=== PATIENT | female | born 1955 | race Hispanic/Latino ===

== ENCOUNTER 2020-12-07 23:42 | Emergency (ER) | payer OTHER, MEDICARE | END 2020-12-08 00:30 | disposition home or self-care (01) | LOC: CSHERS 23:42 | DX: S30.1XXA Contusion of abdominal wall, initial encounter (principal); E11.9 Type 2 diabetes mellitus without complications; I25.10 Atherosclerotic heart disease of native coronary artery without angina pectoris; E78.5 Hyperlipidemia, unspecified; I10 Essential (primary) hypertension; Z79.82 Long term (current) use of aspirin; Z79.84 Long term (current) use of oral hypoglycemic drugs; Z79.899 Other long term (current) drug therapy | CPT/HCPCS: 99283 ==

== ENCOUNTER 2022-11-17 11:12 | Inpatient (IN) | payer OTHER, MEDICARE ==
[2022-11-17] MEDS ORDERED: Pantoprazole 40 MG VIAL ONE (12:56)
[2022-11-17] MEDS ORDERED: Ondansetron PF 4 MG/2 ML Vial ONE (12:56)
[2022-11-17 13:04] LABS: #Basophils 0.1 10x3/uL (0.0-0.2); #Eosinphils 0.1 10x3/uL (0.0-0.5); #Monocytes 0.7 10x3/uL (0.0-1.1); #Neutrophils 11.1 10x3/uL (1.5-8.4); %Basophils 0.6 % (0.0-2.0); %Eosinophils 0.7 % (0.0-6.0); %Lymphocytes 12.6 % (18.0-47.0); %Monocytes 5.4 % (0.0-10.0); %Neutrophils 80.3 % (40.0-75.0); Hemoglobin 13.1 g/dL (12.0-15.5); Mean Corpuscular HGB CONC 32.8 g/dL (32.0-36.0); Mean Corpuscular Hemoglobin 24.8 pg (27.0-33.0); Mean Corpuscular Volume 75.6 fl (81.6-98.3); Mean Platelet Volume 11.5 fl (7.4-10.4); Platelet Count 348 10x3/uL (150-450); RBC Distribution Width 19.3 % (11.5-14.5); Red Blood Cell (RBC) Count 5.29 10x6/uL (3.90-5.03); White Blood Cell (WBC) Count 13.8 10x3/uL (3.5-10.5)
[2022-11-17 13:53] LABS: PTT 22.5 sec (22.0-33.0); Prothrombin Time 11.1 sec (9.5-12.1)
[2022-11-17 13:57] LABS: ALT (SGPT) 44 U/L (8-55); AST (SGOT) 21 U/L (5-34); Alkaline Phosphatase 77 U/L (40-110); Anion Gap 28 mmol/L (10-20); BUN (Urea Nitrogen) 20 mg/dL (9.8-20.1); Bilirubin, Total 0.9 mg/dL (0.2-1.2); Calc. Creatinine Clearance 0 mL/min (70-130); Calcium 9.7 mg/dL (7.8-10.44); Carbon Dioxide 21 mmol/L (23-31); Chloride 95 mmol/L (98-107); Estimated GFR 45; Globulin 2.9 g/dL (2.4-3.5); Glucose 365 mg/dL (80-115); Lipase 20 U/L (8-78); Phosphorus 3.3 mg/dL (2.3-4.7); Potassium 3.4 mmol/L (3.5-5.1); Protein, Total 6.9 g/dL (5.8-8.1); Sodium 141 mmol/L (136-145)
[2022-11-17 14:01] LABS: Magnesium 1.6 mg/dL (1.6-2.6)
[2022-11-17 16:31] LABS: Actual Bicarbonate (HCO3v) 23 mEq/L (22-28); Base Excess 0.2 mEq/L (-2 - +2); Chloride (VBG) 101 mmol/L (98-106); Hemoglobin (Hb) 12.7 g/dL (11.7-16.1); Potassium (VBG) 3.18 mmol/L (3.70-5.30); Puncture Site Other Site; RapidComm Collect By CBN; Sodium 138.6 mmol/L (133-146)
[2022-11-17] MEDS ORDERED: Dextrose 50% Abboject 50 ML SYRINGE SLOW IVP PRN (16:49)
[2022-11-17] MEDS ORDERED: HumaLOG 300 UNITS/3 ML VIAL SC PRN ×2 (16:49)
[2022-11-17] MEDS ORDERED: Acetaminophen 325 MG TAB PO PRN (16:49)
[2022-11-17] MEDS ORDERED: Dextrose 5% in Water 1,000 ML IV PRN (16:49)
[2022-11-17 18:02] LABS: Bilirubin Neg (Negative); Blood, Urine Negative (Negative); Clarity Clear (Clear); Glucose, Urine (Dipstick) >=1000 mg/dL (Negative); Ketone, Urine 150 mg/dL (Negative); Leukocyte Negative (Negative); Nitrite Negative (Negative); Protein, Urine (Dipstick) 30 mg/dl (Neg-Trace); Urobilinogen Normal mg/dL (Less than 2)
[2022-11-17 18:14] LABS: Bacteria/HPF 1+ HPF (None Seen); Mucous/LPF Rare LPF (<2+); Squamous Epithelial None Seen HPF (0-3); WBC/HPF 0-3 HPF (0-3)
[2022-11-17 18:15] LABS: RBC/HPF 0-3 HPF (0-3); Renal Epithelial 0-3 HPF (None Seen)
[2022-11-17] MEDS: Potassium Chloride 20 MEQ in Lactated Ringer's 1,000 ML IV SCH (18:49)
[2022-11-17 20:11] VITALS: BMI 28.8
[2022-11-17] MEDS: Pantoprazole 40 MG VIAL IVP SCH (21:16)
[2022-11-17 23:35] LABS: Hemoglobin A1c 6.7 % (4.0-6.0)
[2022-11-18 06:02] LABS: Anion Gap 17 mmol/L (10-20); BUN (Urea Nitrogen) 21 mg/dL (9.8-20.1); Calc. Creatinine Clearance 58 mL/min (70-130); Calcium 8.7 mg/dL (7.8-10.44); Carbon Dioxide 26 mmol/L (23-31); Chloride 100 mmol/L (98-107); Estimated GFR 59; Glucose 100 mg/dL (80-115); Potassium 3.6 mmol/L (3.5-5.1); Sodium 139 mmol/L (136-145)
[2022-11-18 06:19] LABS: #Eosinphils 0.1 10x3/uL (0.0-0.5); #Neutrophils 4.4 10x3/uL (1.5-8.4); %Basophils 0.4 % (0.0-2.0); %Eosinophils 0.7 % (0.0-6.0); %Lymphocytes 32.1 % (18.0-47.0); %Monocytes 11.8 % (0.0-10.0); %Neutrophils 54.6 % (40.0-75.0); Hemoglobin 10.4 g/dL (12.0-15.5); Mean Corpuscular HGB CONC 32.7 g/dL (32.0-36.0); Mean Corpuscular Hemoglobin 24.9 pg (27.0-33.0); Mean Corpuscular Volume 76.1 fl (81.6-98.3); Mean Platelet Volume 11.3 fl (7.4-10.4); Platelet Count 251 10x3/uL (150-450); RBC Distribution Width 17.1 % (11.5-14.5); Red Blood Cell (RBC) Count 4.18 10x6/uL (3.90-5.03)
[2022-11-18 07:36] LABS: SARS-CoV-2 NAA Rapid Test Not Detected (NotDetected)
[2022-11-18] MEDS: Pantoprazole 40 MG VIAL IVP SCH ×2 (09:24→22:08)
[2022-11-18] MEDS: Potassium Chloride 20 MEQ in Lactated Ringer's 1,000 ML IV SCH ×2 (09:24→22:09)
[2022-11-18] MEDS: Polyethylene Glycol 3350 17 GM Packet PO SCH (09:24)
[2022-11-19] MEDS: Pantoprazole 40 MG VIAL IVP SCH ×2 (08:34→21:27)
[2022-11-19] MEDS: Ondansetron PF 4 MG/2 ML Vial IVP PRN (08:37)
[2022-11-19] MEDS: Polyethylene Glycol 3350 17 GM Packet PO SCH (08:38)
[2022-11-19 08:50] LABS: #Basophils 0.1 10x3/uL (0.0-0.2); #Eosinphils 0.1 10x3/uL (0.0-0.5); #Monocytes 0.5 10x3/uL (0.0-1.1); #Neutrophils 1.9 10x3/uL (1.5-8.4); %Basophils 1.3 % (0.0-2.0); %Eosinophils 1.8 % (0.0-6.0); %Lymphocytes 38.5 % (18.0-47.0); %Monocytes 11.3 % (0.0-10.0); %Neutrophils 46.6 % (40.0-75.0); Hemoglobin 10.6 g/dL (12.0-15.5); Mean Corpuscular HGB CONC 32.1 g/dL (32.0-36.0); Mean Corpuscular Hemoglobin 25.1 pg (27.0-33.0); Mean Platelet Volume 10.8 fl (7.4-10.4); Platelet Count 242 10x3/uL (150-450); Red Blood Cell (RBC) Count 4.23 10x6/uL (3.90-5.03)
[2022-11-19 09:04] LABS: Anion Gap 15 mmol/L (10-20); BUN (Urea Nitrogen) 11 mg/dL (9.8-20.1); Calc. Creatinine Clearance 83 mL/min (70-130); Carbon Dioxide 21 mmol/L (23-31); Chloride 105 mmol/L (98-107); Potassium 3.7 mmol/L (3.5-5.1); Sodium 137 mmol/L (136-145)
[2022-11-19 09:05] LABS: Calcium 8.6 mg/dL (7.8-10.44); Estimated GFR 91; Glucose 89 mg/dL (80-115)
[2022-11-19 09:22] LABS: Magnesium 1.8 mg/dL (1.6-2.6); Phosphorus 2.2 mg/dL (2.3-4.7)
[2022-11-19 13:29] LABS: Bilirubin Neg (Negative); Blood, Urine Negative (Negative); Clarity Clear (Clear); Glucose, Urine (Dipstick) Normal (Negative); Ketone, Urine 50 mg/dL (Negative); Leukocyte Negative (Negative); Nitrite Negative (Negative); Protein, Urine (Dipstick) Negative (Neg-Trace)
[2022-11-19 13:45] LABS: Bacteria/HPF None Seen HPF (None Seen); CAUTI Indications for Culture Dysuria,urgency,freq; RBC/HPF 0-3 HPF (0-3); Squamous Epithelial 0-3 HPF (0-3)
[2022-11-19 13:47] LABS: Urine Culture Reflex No No
[2022-11-19] MEDS: cefTRIAXone\\ROCEPHIN 1 GM in Sodium Chloride 0.9% 100 ML IVPB SCH (14:19)
[2022-11-19] MEDS ORDERED: Electrolyte Replacement Protocol 1 EACH FS PRN (16:53)
[2022-11-19] MEDS: Erythromycin 250 MG in Sodium Chloride 0.9% 250 ML 250 ML IVPB SCH (18:31)
[2022-11-19] MEDS ORDERED: Magnesium 2 GM/50 ML(in water) 2 GM in Premix Bag 1 BAG IVPB SCH (20:00)
[2022-11-19] MEDS: Potassium Chloride 20 MEQ in Lactated Ringer's 1,000 ML IV SCH ×2 (21:22→23:04)
[2022-11-20] MEDS: Erythromycin 250 MG in Sodium Chloride 0.9% 250 ML 250 ML IVPB SCH ×5 (00:32→23:49)
[2022-11-20] MEDS: Potassium Chloride 20 MEQ in Lactated Ringer's 1,000 ML IV SCH ×2 (00:40→17:01)
[2022-11-20] MEDS: Pantoprazole 80 MG, Admixture Fee 1 EACH in Sodium Chloride 0.9% 100 ML IVPB SCH ×2 (03:13→17:39)
[2022-11-20 04:54] LABS: #Eosinphils 0.1 10x3/uL (0.0-0.5); #Monocytes 0.5 10x3/uL (0.0-1.1); #Neutrophils 1.7 10x3/uL (1.5-8.4); %Basophils 0.7 % (0.0-2.0); %Eosinophils 2.2 % (0.0-6.0); %Lymphocytes 43.4 % (18.0-47.0); %Monocytes 12.3 % (0.0-10.0); %Neutrophils 41.2 % (40.0-75.0); Hemoglobin 10.1 g/dL (12.0-15.5); Mean Corpuscular HGB CONC 32.1 g/dL (32.0-36.0); Mean Corpuscular Hemoglobin 24.9 pg (27.0-33.0); Mean Corpuscular Volume 77.8 fl (81.6-98.3); Mean Platelet Volume 10.9 fl (7.4-10.4); Platelet Count 232 10x3/uL (150-450); RBC Distribution Width 16.6 % (11.5-14.5); Red Blood Cell (RBC) Count 4.05 10x6/uL (3.90-5.03); White Blood Cell (WBC) Count 4.1 10x3/uL (3.5-10.5)
[2022-11-20 04:56] LABS: Anion Gap 13 mmol/L (10-20); BUN (Urea Nitrogen) 7 mg/dL (9.8-20.1); Carbon Dioxide 20 mmol/L (23-31); Chloride 109 mmol/L (98-107); Potassium 3.6 mmol/L (3.5-5.1); Sodium 138 mmol/L (136-145)
[2022-11-20 04:57] LABS: Calc. Creatinine Clearance 95 mL/min (70-130); Calcium 8.1 mg/dL (7.8-10.44); Estimated GFR 97; Glucose 80 mg/dL (80-115); Magnesium 2.2 mg/dL (1.6-2.6)
[2022-11-20] MEDS: Ondansetron PF 4 MG/2 ML Vial IVP PRN ×2 (07:49→15:31)
[2022-11-20] MEDS: Polyethylene Glycol 3350 17 GM Packet PO SCH (13:18)
[2022-11-20] MEDS: cefTRIAXone\\ROCEPHIN 1 GM in Sodium Chloride 0.9% 100 ML IVPB SCH ×2 (17:38→19:52)
[2022-11-21 04:20] LABS: #Eosinphils 0.1 10x3/uL (0.0-0.5); #Monocytes 0.4 10x3/uL (0.0-1.1); #Neutrophils 1.5 10x3/uL (1.5-8.4); %Basophils 0.8 % (0.0-2.0); %Eosinophils 2.9 % (0.0-6.0); %Lymphocytes 46.5 % (18.0-47.0); %Monocytes 10.4 % (0.0-10.0); %Neutrophils 39.1 % (40.0-75.0); Hemoglobin 10.1 g/dL (12.0-15.5); Mean Corpuscular HGB CONC 32.6 g/dL (32.0-36.0); Mean Corpuscular Hemoglobin 25.1 pg (27.0-33.0); Mean Corpuscular Volume 76.9 fl (81.6-98.3); Platelet Count 229 10x3/uL (150-450); RBC Distribution Width 16.7 % (11.5-14.5); Red Blood Cell (RBC) Count 4.03 10x6/uL (3.90-5.03); White Blood Cell (WBC) Count 3.9 10x3/uL (3.5-10.5)
[2022-11-21 04:28] LABS: Anion Gap 11 mmol/L (10-20); BUN (Urea Nitrogen) 4 mg/dL (9.8-20.1); Calc. Creatinine Clearance 98 mL/min (70-130); Calcium 8.2 mg/dL (7.8-10.44); Carbon Dioxide 20 mmol/L (23-31); Chloride 112 mmol/L (98-107); Estimated GFR 98; Glucose 90 mg/dL (80-115); Magnesium 1.8 mg/dL (1.6-2.6); Potassium 3.7 mmol/L (3.5-5.1); Sodium 139 mmol/L (136-145)
[2022-11-21] MEDS: Pantoprazole 80 MG, Admixture Fee 1 EACH in Sodium Chloride 0.9% 100 ML IVPB SCH (04:55)
[2022-11-21] MEDS: Erythromycin 250 MG in Sodium Chloride 0.9% 250 ML 250 ML IVPB SCH ×2 (05:30→12:55)
[2022-11-21] MEDS: Potassium Chloride 20 MEQ in Lactated Ringer's 1,000 ML IV SCH (06:08)
[2022-11-21] MEDS ORDERED: Magnesium 2 GM/50 ML(in water) 2 GM in Premix Bag 1 BAG IVPB SCH (08:00)
[2022-11-21] MEDS: PHOS-NAK 1 PKT PACK PO SCH ×2 (10:01→12:55)
[2022-11-21] MEDS: Polyethylene Glycol 3350 17 GM Packet PO SCH (10:01)
[2022-11-21 13:16] VITALS: BP 155/70; TEMP 98.5
[2022-11-21] MEDS: cefTRIAXone\\ROCEPHIN 1 GM in Sodium Chloride 0.9% 100 ML IVPB SCH (14:52)
== END 2022-11-21 17:01 | disposition home or self-care (01) | DRG 74 ==
LOC: CSHERS 11:12 → INTOOBSV 18:27 → CSHERHOLD 18:27 → CSHTELE 20:08 → OBSVTOIN 11-19 11:09
PROVIDERS: ADMIT Internal Medicine; ATTEND Internal Medicine
DX: E11.43 Type 2 diabetes mellitus with diabetic autonomic (poly)neuropathy (principal); I12.9 Hypertensive chronic kidney disease with stage 1 through stage 4 chronic kidney disease, or unspecified chronic kidney disease; E11.22 Type 2 diabetes mellitus with diabetic chronic kidney disease; E78.5 Hyperlipidemia, unspecified; I25.10 Atherosclerotic heart disease of native coronary artery without angina pectoris; N18.9 Chronic kidney disease, unspecified; E87.6 Hypokalemia; F41.9 Anxiety disorder, unspecified; F32.A Depression, unspecified; Z20.822 Contact with and (suspected) exposure to COVID-19; K31.84 Gastroparesis; E86.0 Dehydration; Z98.890 Other specified postprocedural states; Z88.5 Allergy status to narcotic agent; Z88.8 Allergy status to other drugs, medicaments and biological substances; Z79.899 Other long term (current) drug therapy; Z79.84 Long term (current) use of oral hypoglycemic drugs
CPT/HCPCS: 36415; 36416; 76705; 78227; 80048; 80053; 81001; 81003; 81015; 82010; 82550; 82805; 83036; 83605; 83690; 83735; 84100; 84484; 85025; 85610; 85730; 86850; 86900; 86901; 93005; 96361; 96374; 96375; A9537; C9113; J0696; J1364; J1815; J2405; J3475; J3480; J3490; J7050; J7120; U0002

== ENCOUNTER 2023-01-06 07:58 | Outpatient (CLI) | payer OTHER, MEDICARE ==
[2023-01-06] MEDS ORDERED: Magnevist 469MG/ML 20 ML VIAL ONE (09:30)
== END 2023-01-06 07:59 | disposition home or self-care (01) ==
LOC: CSHMRI 07:58
PROVIDERS: ATTEND Internal Medicine
DX: K31.84 Gastroparesis (principal); K21.00 Gastro-esophageal reflux disease with esophagitis, without bleeding; D64.9 Anemia, unspecified; K86.9 Disease of pancreas, unspecified
CPT/HCPCS: 74183; A9579

== ENCOUNTER 2023-03-04 10:16 | Outpatient (CLI) | payer OTHER, MEDICARE | END 2023-03-04 10:17 | disposition home or self-care (01) | LOC: CSHMAMMO 10:16 | PROVIDERS: ATTEND Internal Medicine Rheumatology | DX: M81.0 Age-related osteoporosis without current pathological fracture (principal) | CPT/HCPCS: 77080 ==

== ENCOUNTER 2023-04-15 07:27 | Outpatient (CLI) | payer MEDICARE, OTHER ==
[2023-04-15] MEDS ORDERED: Iopamidol 300 61% 100 ML VIAL FS ONE (15:19)
== END 2023-04-15 07:28 | disposition home or self-care (01) ==
LOC: CSHCT 07:27
PROVIDERS: ATTEND Surgery Surgical Oncology
DX: D3A.8 Other benign neuroendocrine tumors (principal); C26.9 Malignant neoplasm of ill-defined sites within the digestive system
CPT/HCPCS: 71260; Q9967

== ENCOUNTER 2023-05-06 12:07 | Emergency (ER) | payer OTHER, MEDICARE ==
[~2023-05-06 12:07] MED LIST: Iopamidol 300 61% 100 ML VIAL FS ONE
[2023-05-06] MEDS ORDERED: Ondansetron PF 4 MG/2 ML Vial ONE (12:36)
[2023-05-06] MEDS ORDERED: Morphine 4 MG/ML VIAL ONE ×2 (12:36→13:47)
[2023-05-06 12:57] LABS: #Basophils 0.1 10x3/uL (0.0-0.2); #Eosinphils 0.1 10x3/uL (0.0-0.5); #Monocytes 0.9 10x3/uL (0.0-1.1); %Basophils 0.9 % (0.0-2.0); %Lymphocytes 12.9 % (18.0-47.0); %Monocytes 6.4 % (0.0-10.0); %Neutrophils 76.2 % (40.0-75.0); Hematocrit 37.2 % (34.9-44.5); Hemoglobin 11.4 g/dL (12.0-15.5); Mean Corpuscular HGB CONC 30.6 g/dL (32.0-36.0); Mean Corpuscular Hemoglobin 23.8 pg (27.0-33.0); Mean Corpuscular Volume 77.7 fl (81.6-98.3); Mean Platelet Volume 10.5 fl (7.4-10.4); Platelet Count 723 10x3/uL (150-450); RBC Distribution Width 16.3 % (11.5-14.5); Red Blood Cell (RBC) Count 4.79 10x6/uL (3.90-5.03); White Blood Cell (WBC) Count 14.4 10x3/uL (3.5-10.5)
[2023-05-06 12:59] LABS: ALT (SGPT) 20 U/L (8-55); AST (SGOT) 18 U/L (5-34); Albumin 3.5 g/dL (3.4-4.8); Alkaline Phosphatase 131 U/L (40-110); Anion Gap 31 mmol/L (10-20); BUN (Urea Nitrogen) 19 mg/dL (9.8-20.1); Bilirubin, Total 0.4 mg/dL (0.2-1.2); Calc. Creatinine Clearance 0 mL/min (70-130); Calcium 8.7 mg/dL (7.8-10.44); Chloride 101 mmol/L (98-107); Estimated GFR 45; Globulin 3.4 g/dL (2.4-3.5); Magnesium 1.9 mg/dL (1.6-2.6); Potassium 5.7 mmol/L (3.5-5.1); Protein, Total 6.9 g/dL (5.8-8.1); Sodium 135 mmol/L (136-145)
[2023-05-06 13:03] LABS: Carbon Dioxide 9 mmol/L (23-31); Glucose 417 mg/dL (80-115)
[2023-05-06 13:05] LABS: Troponin I Less than 0.010 ng/mL (< 0.028)
[2023-05-06] MEDS ORDERED: Piperacillin/Tazobactam 3.375 GM VIAL ONE (13:47)
[2023-05-06] MEDS ORDERED: VANCOMYCIN 1.25 GM/250 ML BAG 1.25 GM in Premix Bag 1 BAG IVPB SCH (14:15)
[2023-05-06] MEDS ORDERED: Insulin Regular 300 UNITS/3 ML VIAL ONE (14:26)
[2023-05-06] MEDS ORDERED: INSULIN REGULAR IN 0.9 % NACL 100 UNITS/100 ML BAG ONE (14:32)
[2023-05-06 14:47] LABS: Actual Bicarbonate (HCO3v) 9.4 mEq/L (22-28); Base Excess -18.7 mEq/L (-2 - +2); Calcium, Ionized (venous) 1.11 mmol/L (1.16-1.32); Chloride (VBG) 102 mmol/L (98-106); Hematocrit-VBG 36 % (36.0-47.0); Hemoglobin (Hb) 12.2 g/dL (11.7-16.1); Potassium (VBG) 5.17 mmol/L (3.70-5.30); Puncture Site Other Site; RapidComm Collect By CBN; Sodium 135.7 mmol/L (133-146); pH (venous) 7.116 (7.32-7.43)
[2023-05-06 17:44] LABS: Anion Gap 26 mmol/L (10-20); BUN (Urea Nitrogen) 20 mg/dL (9.8-20.1); Calc. Creatinine Clearance 0 mL/min (70-130); Calcium 8.1 mg/dL (7.8-10.44); Chloride 109 mmol/L (98-107); Estimated GFR 55; Glucose 313 mg/dL (80-115); Potassium 4.6 mmol/L (3.5-5.1); Sodium 138 mmol/L (136-145)
[2023-05-06 17:47] LABS: Carbon Dioxide 8 mmol/L (23-31)
[2023-05-06 18:04] LABS: Bilirubin Neg (Negative); Blood, Urine 10 (Negative); Clarity Clear (Clear); Glucose, Urine (Dipstick) >=1000 mg/dL (Negative); Ketone, Urine 150 mg/dL (Negative); Leukocyte Negative (Negative); Nitrite Negative (Negative); Protein, Urine (Dipstick) 30 mg/dl (Neg-Trace); Urobilinogen Normal mg/dL (Less than 2)
[2023-05-06 18:11] LABS: Bacteria/HPF Rare-Few HPF (None Seen); CAUTI Indications for Culture Pelvic or flank pain; RBC/HPF 0-3 HPF (0-3); Squamous Epithelial 0-3 HPF (0-3); WBC/HPF None Seen HPF (0-3)
[2023-05-06 18:12] LABS: Urine Culture Reflex No No
== END 2023-05-06 18:38 | disposition short-term general hospital (02) ==
LOC: CSHERS 12:07
DX: E11.10 Type 2 diabetes mellitus with ketoacidosis without coma (principal); I25.10 Atherosclerotic heart disease of native coronary artery without angina pectoris; I10 Essential (primary) hypertension
CPT/HCPCS: 36415; 36416; 74177; 80053; 81001; 82010; 82805; 83605; 83735; 84484; 85025; 87040; 93005; 93010; 96365; 96366; 96367; 96375; 96376; J1815; J2270; J2405; J2543; J3370; Q9967

== ENCOUNTER 2023-05-28 19:32 | Inpatient (IN) | payer OTHER, MEDICARE ==
[2023-05-28] MEDS ORDERED: Ondansetron PF 4 MG/2 ML Vial ONE ×2 (20:26→22:11)
[2023-05-28 20:32] LABS: #Basophils 0.1 10x3/uL (0.0-0.2); #Eosinphils 0.3 10x3/uL (0.0-0.5); #Monocytes 0.8 10x3/uL (0.0-1.1); #Neutrophils 6.2 10x3/uL (1.5-8.4); %Eosinophils 3.1 % (0.0-6.0); %Lymphocytes 18.4 % (18.0-47.0); %Neutrophils 67.7 % (40.0-75.0); Hematocrit 33.8 % (34.9-44.5); Mean Corpuscular HGB CONC 32.5 g/dL (32.0-36.0); Mean Corpuscular Hemoglobin 24.5 pg (27.0-33.0); Mean Corpuscular Volume 75.3 fl (81.6-98.3); Mean Platelet Volume 11.3 fl (7.4-10.4); Platelet Count 427 10x3/uL (150-450); RBC Distribution Width 18.7 % (11.5-14.5); Red Blood Cell (RBC) Count 4.49 10x6/uL (3.90-5.03); White Blood Cell (WBC) Count 9.1 10x3/uL (3.5-10.5)
[2023-05-28 20:44] LABS: INR-International Normal Ratio 1.1; PTT 24.6 sec (22.0-33.0); Prothrombin Time 11.4 sec (9.5-12.1)
[2023-05-28 20:48] LABS: ALT (SGPT) 22 U/L (8-55); AST (SGOT) 20 U/L (5-34); Albumin 3.9 g/dL (3.4-4.8); Alkaline Phosphatase 95 U/L (40-110); Anion Gap 26 mmol/L (10-20); BUN (Urea Nitrogen) 16 mg/dL (9.8-20.1); Bilirubin, Total 0.6 mg/dL (0.2-1.2); Calc. Creatinine Clearance 0 mL/min (70-130); Calcium 9.9 mg/dL (7.8-10.44); Carbon Dioxide 22 mmol/L (23-31); Chloride 94 mmol/L (98-107); Estimated GFR 77; Globulin 3.7 g/dL (2.4-3.5); Glucose 382 mg/dL (80-115); Lipase 50 U/L (8-78); Magnesium 1.5 mg/dL (1.6-2.6); Potassium 4.2 mmol/L (3.5-5.1); Protein, Total 7.6 g/dL (5.8-8.1); Sodium 138 mmol/L (136-145)
[2023-05-28] MEDS ORDERED: Ketorolac Tromethamine 30 MG/ML VIAL ONE (22:11)
[2023-05-28] MEDS ORDERED: cefTRIAXone (ROCEPHIN) 1 GM VIAL ONE (22:49)
[2023-05-28 23:39] LABS: Lactic Acid 3.1 mmol/L (0.5-2.2)
[2023-05-29] MEDS ORDERED: Piperacillin/Tazobactam 3.375 GM in Sodium Chloride 0.9% 100 ML IVPB SCH ×2 (00:15→01:00)
[2023-05-29] MEDS ORDERED: Dextrose 5 %-0.45 % NaCl 1,000 ML IV PRN (00:17)
[2023-05-29] MEDS ORDERED: D5 1/2 NS w/20 mEq KCL 1,000 ML IV PRN (00:17)
[2023-05-29] MEDS ORDERED: Sodium Chloride 0.9% 1,000 ML IV PRN ×4 (00:17)
[2023-05-29] MEDS ORDERED: NS 0.9% w/ 20 MEQ KCL 1,000 ML IV PRN ×2 (00:17)
[2023-05-29] MEDS ORDERED: Electrolyte Replacement Protocol 1 EACH IVPB SCH (00:17)
[2023-05-29] MEDS ORDERED: Dextrose 50% Abboject 50 ML SYRINGE SLOW IVP PRN (00:17)
[2023-05-29] MEDS ORDERED: Magnesium 2 GM/50 ML(in water) 2 GM in Premix Bag 1 BAG IVPB SCH ×2 (00:30→09:00)
[2023-05-29] MEDS ORDERED: INSULIN REGULAR IN 0.9 % NACL 100 UNITS in Premix Bag 1 BAG IVPB SCH (00:30)
[2023-05-29 00:33] LABS: Troponin I 0.014 ng/mL (< 0.028)
[2023-05-29 00:44] LABS: Bilirubin Neg (Negative); Blood, Urine Negative (Negative); Clarity Clear (Clear); Glucose, Urine (Dipstick) >=1000 mg/dL (Negative); Ketone, Urine 150 mg/dL (Negative); Leukocyte Negative (Negative); Nitrite Negative (Negative); Protein, Urine (Dipstick) 15 mg/dl (Neg-Trace); Urobilinogen Normal mg/dL (Less than 2)
[2023-05-29] MEDS ORDERED: Pantoprazole 40 MG VIAL IVP SCH (01:00)
[2023-05-29 01:01] LABS: Bacteria/HPF Rare-Few HPF (None Seen); CAUTI Indications for Culture Alt mental st,lethar; RBC/HPF None Seen HPF (0-3); WBC/HPF 0-3 HPF (0-3)
[2023-05-29 01:02] LABS: Anion Gap 26 mmol/L (10-20); BUN (Urea Nitrogen) 16 mg/dL (9.8-20.1); Calc. Creatinine Clearance 0 mL/min (70-130); Calcium 9.4 mg/dL (7.8-10.44); Carbon Dioxide 20 mmol/L (23-31); Chloride 95 mmol/L (98-107); Estimated GFR 72; Phosphorus 3.3 mg/dL (2.3-4.7); Potassium 4.3 mmol/L (3.5-5.1); Sodium 137 mmol/L (136-145)
[2023-05-29 01:02] LABS: Urine Culture Reflex No No
[2023-05-29 01:05] LABS: Glucose 459 mg/dL (80-115)
[2023-05-29 01:13] VITALS: BMI 24.1
[2023-05-29] MEDS ORDERED: Vancomycin HCl 1 GM in Sodium Chloride 0.9% 250 ML 250 ML IVPB SCH (01:15)
[2023-05-29] MEDS: Nitroglycerin 2% Ointment 1 INCH/1 GM Packet TOP SCH ×3 (01:30→16:32)
[2023-05-29] MEDS ORDERED: Sucralfate 1 GM/10 ML UDCUP PO PRN (02:30)
[2023-05-29] MEDS ORDERED: FLU VACC QS2023(65UP)/MF59C/PF 60 MCG/0.5 ML SYRINGE IM ONE (02:45)
[2023-05-29] MEDS: Benzocaine/Menthol 1 LOZ LOZ PO PRN ×2 (03:05→12:02)
[2023-05-29 04:54] LABS: #Basophils 0.1 10x3/uL (0.0-0.2); %Basophils 0.4 % (0.0-2.0); %Eosinophils 0.1 % (0.0-6.0); %Lymphocytes 8.5 % (18.0-47.0); %Monocytes 8.5 % (0.0-10.0); %Neutrophils 82.1 % (40.0-75.0); Hemoglobin 8.7 g/dL (12.0-15.5); Mean Corpuscular HGB CONC 32.2 g/dL (32.0-36.0); Mean Corpuscular Hemoglobin 24.4 pg (27.0-33.0); Mean Corpuscular Volume 75.6 fl (81.6-98.3); Mean Platelet Volume 11.3 fl (7.4-10.4); Platelet Count 369 10x3/uL (150-450); RBC Distribution Width 18.6 % (11.5-14.5); Red Blood Cell (RBC) Count 3.57 10x6/uL (3.90-5.03); White Blood Cell (WBC) Count 12.2 10x3/uL (3.5-10.5)
[2023-05-29 05:07] LABS: Anion Gap 16 mmol/L (10-20); BUN (Urea Nitrogen) 14 mg/dL (9.8-20.1); Calc. Creatinine Clearance 70 mL/min (70-130); Calcium 8.2 mg/dL (7.8-10.44); Carbon Dioxide 22 mmol/L (23-31); Chloride 103 mmol/L (98-107); Estimated GFR 92; Glucose 227 mg/dL (80-115); Potassium 3.4 mmol/L (3.5-5.1); Sodium 138 mmol/L (136-145)
[2023-05-29] MEDS ORDERED: Potassium Bicarbonate/Cit Ac 20 MEQ TAB PO SCH (05:15)
[2023-05-29] MEDS: Piperacillin/Tazobactam 3.375 GM in Sodium Chloride 0.9% 100 ML IVPB SCH ×3 (05:39→21:12)
[2023-05-29 06:33] LABS: Phosphorus 2.1 mg/dL (2.3-4.7)
[2023-05-29 06:34] LABS: Magnesium 1.8 mg/dL (1.6-2.6)
[2023-05-29] MEDS: Ranolazine 500 MG ER.TAB PO SCH ×2 (08:12→21:12)
[2023-05-29] MEDS: Aspirin Chewable 81 MG TAB PO SCH (08:13)
[2023-05-29] MEDS: busPIRone HCl 5 MG TAB PO SCH ×2 (08:13→21:12)
[2023-05-29] MEDS: TICAGRELOR 90 MG TABLET PO SCH ×2 (08:13→21:12)
[2023-05-29] MEDS: Carvedilol 6.25 MG TAB PO SCH ×2 (08:13→16:33)
[2023-05-29] MEDS ORDERED: DEXTROSE IV SCH (09:15)
[2023-05-29] MEDS ORDERED: NACL IV SCH (09:15)
[2023-05-29] MEDS ORDERED: POTASSIUM ACETATE IV SCH (09:15)
[2023-05-29 10:50] LABS: Anion Gap 14 mmol/L (10-20); BUN (Urea Nitrogen) 12 mg/dL (9.8-20.1); Calc. Creatinine Clearance 71 mL/min (70-130); Calcium 7.7 mg/dL (7.8-10.44); Carbon Dioxide 21 mmol/L (23-31); Chloride 108 mmol/L (98-107); Estimated GFR 94; Glucose 160 mg/dL (80-115); Potassium 3.2 mmol/L (3.5-5.1); Sodium 140 mmol/L (136-145)
[2023-05-29] MEDS ORDERED: Potassium Chloride 20 MEQ TAB PO SCH ×2 (12:00→20:00)
[2023-05-29] MEDS ORDERED: Vancomycin HCl 1 GM in Sodium Chloride 0.9% 250 ML 300 ML IVPB SCH (13:00)
[2023-05-29 16:04] LABS: Anion Gap 11 mmol/L (10-20); BUN (Urea Nitrogen) 12 mg/dL (9.8-20.1); Calc. Creatinine Clearance 68 mL/min (70-130); Calcium 7.8 mg/dL (7.8-10.44); Carbon Dioxide 22 mmol/L (23-31); Chloride 107 mmol/L (98-107); Estimated GFR 89; Glucose 163 mg/dL (80-115); Potassium 3.4 mmol/L (3.5-5.1); Sodium 137 mmol/L (136-145)
[2023-05-29] MEDS ORDERED: Glucagon 1 MG/ML KIT IM PRN (16:16)
[2023-05-29] MEDS ORDERED: Dextrose 5% in Water 1,000 ML IV PRN (16:16)
[2023-05-29] MEDS ORDERED: Lantus 1000 UNITS/10 ML VIAL SC SCH (16:30)
[2023-05-29 18:18] LABS: Bilirubin Neg (Negative); Blood, Urine Negative (Negative); Clarity Clear (Clear); Glucose, Urine (Dipstick) 100 mg/dL (Negative); Ketone, Urine 15 mg/dL (Negative); Leukocyte 25 (Negative); Nitrite Negative (Negative); Protein, Urine (Dipstick) 30 mg/dl (Neg-Trace)
[2023-05-29 18:31] LABS: RBC/HPF None Seen HPF (0-3)
[2023-05-29 18:32] LABS: Bacteria/HPF Rare-Few HPF (None Seen); Squamous Epithelial 0-3 HPF (0-3); WBC/HPF 0-3 HPF (0-3)
[2023-05-29 19:06] LABS: Potassium 3.4 mmol/L (3.5-5.1)
[2023-05-29] MEDS: Ondansetron PF 4 MG/2 ML Vial IVP PRN (19:38)
[2023-05-29] MEDS: D5 1/2 NS w/20 mEq KCL 1,000 ML IV SCH (19:47)
[2023-05-29] MEDS: Pantoprazole 40 MG VIAL IVP SCH (21:12)
[2023-05-29] MEDS: Atorvastatin Calcium 40 MG TAB PO SCH (21:12)
[2023-05-29] MEDS: HumaLOG 300 UNITS/3 ML VIAL SC PRN (21:31)
[2023-05-30] MEDS ORDERED: Vancomycin HCl 750 MG in Sodium Chloride 0.9% 250 ML 250 ML IVPB SCH (01:00)
[2023-05-30] MEDS: Nitroglycerin 2% Ointment 1 INCH/1 GM Packet TOP SCH ×3 (01:45→17:54)
[2023-05-30 04:13] LABS: Anion Gap 10 mmol/L (10-20); BUN (Urea Nitrogen) 9 mg/dL (9.8-20.1); Calc. Creatinine Clearance 68 mL/min (70-130); Calcium 7.5 mg/dL (7.8-10.44); Carbon Dioxide 22 mmol/L (23-31); Chloride 110 mmol/L (98-107); Estimated GFR 88; Glucose 139 mg/dL (80-115); Magnesium 1.6 mg/dL (1.6-2.6); Potassium 3.9 mmol/L (3.5-5.1); Sodium 138 mmol/L (136-145)
[2023-05-30] MEDS: Piperacillin/Tazobactam 3.375 GM in Sodium Chloride 0.9% 100 ML IVPB SCH ×3 (04:33→21:24)
[2023-05-30] MEDS: Ondansetron PF 4 MG/2 ML Vial IVP PRN ×2 (06:27→11:45)
[2023-05-30] MEDS: Lantus 1000 UNITS/10 ML VIAL SC SCH (08:06)
[2023-05-30] MEDS: Pantoprazole 40 MG VIAL IVP SCH ×2 (08:07→21:24)
[2023-05-30] MEDS: busPIRone HCl 5 MG TAB PO SCH ×2 (08:08→21:22)
[2023-05-30] MEDS: Ranolazine 500 MG ER.TAB PO SCH ×2 (08:08→21:22)
[2023-05-30] MEDS: Aspirin Chewable 81 MG TAB PO SCH (08:08)
[2023-05-30] MEDS: Carvedilol 6.25 MG TAB PO SCH ×2 (08:08→17:54)
[2023-05-30] MEDS: TICAGRELOR 90 MG TABLET PO SCH ×2 (08:09→21:23)
[2023-05-30] MEDS ORDERED: Magnesium 2 GM/50 ML(in water) 2 GM in Premix Bag 1 BAG IVPB SCH (09:00)
[2023-05-30] MEDS: HumaLOG 300 UNITS/3 ML VIAL SC PRN ×2 (11:43→21:23)
[2023-05-30] MEDS: D5 1/2 NS w/20 mEq KCL 1,000 ML IV SCH ×3 (12:50→12:52)
[2023-05-30] MEDS: Atorvastatin Calcium 40 MG TAB PO SCH (21:22)
[2023-05-30] MEDS: E.E.S. 200 MG/5 ML Oral Suspension PO SCH (21:25)
[2023-05-30] MEDS: Benzocaine/Menthol 1 LOZ LOZ PO PRN (21:29)
[2023-05-31 00:12] LABS: Vancomycin, Trough 6.2 ug/mL
[2023-05-31] MEDS: Nitroglycerin 2% Ointment 1 INCH/1 GM Packet TOP SCH ×3 (00:53→16:48)
[2023-05-31] MEDS ORDERED: Vancomycin HCl 750 MG in Sodium Chloride 0.9% 250 ML 250 ML IVPB SCH (01:00)
[2023-05-31] MEDS: Piperacillin/Tazobactam 3.375 GM in Sodium Chloride 0.9% 100 ML IVPB SCH (04:59)
[2023-05-31] MEDS: E.E.S. 200 MG/5 ML Oral Suspension PO SCH ×3 (05:22→21:04)
[2023-05-31 06:10] LABS: Anion Gap 13 mmol/L (10-20); BUN (Urea Nitrogen) 5 mg/dL (9.8-20.1); Calc. Creatinine Clearance 69 mL/min (70-130); Calcium 8.4 mg/dL (7.8-10.44); Carbon Dioxide 20 mmol/L (23-31); Chloride 108 mmol/L (98-107); Estimated GFR 91; Glucose 126 mg/dL (80-115); Magnesium 1.5 mg/dL (1.6-2.6); Potassium 3.4 mmol/L (3.5-5.1); Sodium 138 mmol/L (136-145)
[2023-05-31] MEDS: Pantoprazole 40 MG VIAL IVP SCH ×2 (08:51→21:04)
[2023-05-31] MEDS: Ranolazine 500 MG ER.TAB PO SCH ×2 (08:51→21:03)
[2023-05-31] MEDS: busPIRone HCl 5 MG TAB PO SCH ×2 (08:52→21:03)
[2023-05-31] MEDS: Aspirin Chewable 81 MG TAB PO SCH (08:52)
[2023-05-31] MEDS: Carvedilol 6.25 MG TAB PO SCH ×2 (08:52→16:48)
[2023-05-31] MEDS: Lantus 1000 UNITS/10 ML VIAL SC SCH (08:53)
[2023-05-31] MEDS ORDERED: Magnesium 2 GM/50 ML(in water) 2 GM in Premix Bag 1 BAG IVPB SCH (09:00)
[2023-05-31] MEDS ORDERED: Potassium Bicarbonate/Cit Ac 20 MEQ TAB PO SCH (09:00)
[2023-05-31] MEDS: TICAGRELOR 90 MG TABLET PO SCH ×2 (09:08→21:03)
[2023-05-31] MEDS ORDERED: Ondansetron PF 4 MG/2 ML Vial IVP PRN (11:12)
[2023-05-31] MEDS ORDERED: Ondansetron ODT 4 MG TAB PO PRN (11:12)
[2023-05-31 15:21] LABS: Potassium 4.2 mmol/L (3.5-5.1)
[2023-05-31] MEDS: Benzocaine/Menthol 1 LOZ LOZ PO PRN ×2 (15:31→21:03)
[2023-05-31] MEDS ORDERED: Dronabinol 2.5 MG CAP PO PRN (16:30)
[2023-05-31] MEDS: HumaLOG 300 UNITS/3 ML VIAL SC PRN ×2 (16:48→21:04)
[2023-05-31] MEDS: Atorvastatin Calcium 40 MG TAB PO SCH (21:04)
[2023-06-01] MEDS: Nitroglycerin 2% Ointment 1 INCH/1 GM Packet TOP SCH ×3 (01:33→17:55)
[2023-06-01 04:57] LABS: Anion Gap 15 mmol/L (10-20); BUN (Urea Nitrogen) 5 mg/dL (9.8-20.1); Calc. Creatinine Clearance 68 mL/min (70-130); Calcium 8.5 mg/dL (7.8-10.44); Carbon Dioxide 20 mmol/L (23-31); Chloride 103 mmol/L (98-107); Estimated GFR 89; Glucose 216 mg/dL (80-115); Magnesium 1.6 mg/dL (1.6-2.6); Potassium 3.9 mmol/L (3.5-5.1); Sodium 134 mmol/L (136-145)
[2023-06-01] MEDS ORDERED: Magnesium 2 GM/50 ML(in water) 2 GM in Premix Bag 1 BAG IVPB SCH (06:00)
[2023-06-01] MEDS: HumaLOG 300 UNITS/3 ML VIAL SC PRN (06:07)
[2023-06-01] MEDS: E.E.S. 200 MG/5 ML Oral Suspension PO SCH ×3 (06:07→21:08)
[2023-06-01] MEDS: Pantoprazole 40 MG VIAL IVP SCH ×2 (08:26→20:59)
[2023-06-01] MEDS: Carvedilol 6.25 MG TAB PO SCH ×2 (08:28→17:55)
[2023-06-01] MEDS: Ranolazine 500 MG ER.TAB PO SCH ×2 (08:28→20:59)
[2023-06-01] MEDS: busPIRone HCl 5 MG TAB PO SCH ×2 (08:28→20:59)
[2023-06-01] MEDS: Aspirin Chewable 81 MG TAB PO SCH (08:29)
[2023-06-01] MEDS: Lantus 1000 UNITS/10 ML VIAL SC SCH (08:34)
[2023-06-01] MEDS: TICAGRELOR 90 MG TABLET PO SCH ×2 (12:50→20:59)
[2023-06-01] MEDS ORDERED: Ondansetron ODT 4 MG TAB PO SCH (13:30)
[2023-06-01] MEDS ORDERED: Meclizine HCl 12.5 MG TAB PO PRN (14:13)
[2023-06-01] MEDS: Atorvastatin Calcium 40 MG TAB PO SCH (20:58)
[2023-06-02] MEDS: Nitroglycerin 2% Ointment 1 INCH/1 GM Packet TOP SCH ×2 (01:52→08:18)
[2023-06-02 05:33] LABS: Anion Gap 12 mmol/L (10-20); BUN (Urea Nitrogen) 5 mg/dL (9.8-20.1); Calc. Creatinine Clearance 77 mL/min (70-130); Calcium 8.3 mg/dL (7.8-10.44); Carbon Dioxide 23 mmol/L (23-31); Chloride 104 mmol/L (98-107); Estimated GFR 97; Glucose 144 mg/dL (80-115); Magnesium 1.5 mg/dL (1.6-2.6); Potassium 3.3 mmol/L (3.5-5.1); Sodium 136 mmol/L (136-145)
[2023-06-02] MEDS: E.E.S. 200 MG/5 ML Oral Suspension PO SCH (05:51)
[2023-06-02] MEDS ORDERED: Ondansetron ODT 4 MG TAB PO PRN (07:34)
[2023-06-02] MEDS: Ranolazine 500 MG ER.TAB PO SCH (08:17)
[2023-06-02] MEDS: Pantoprazole 40 MG VIAL IVP SCH (08:17)
[2023-06-02] MEDS: Lantus 1000 UNITS/10 ML VIAL SC SCH (08:17)
[2023-06-02] MEDS: Carvedilol 6.25 MG TAB PO SCH (08:17)
[2023-06-02] MEDS: busPIRone HCl 5 MG TAB PO SCH (08:17)
[2023-06-02] MEDS: Aspirin Chewable 81 MG TAB PO SCH (08:18)
[2023-06-02] MEDS: TICAGRELOR 90 MG TABLET PO SCH (08:18)
[2023-06-02] MEDS ORDERED: Magnesium 2 GM/50 ML(in water) 2 GM in Premix Bag 1 BAG IVPB SCH (09:00)
[2023-06-02] MEDS ORDERED: Potassium Chloride 20 MEQ TAB PO SCH (09:00)
[2023-06-02] MEDS: HumaLOG 300 UNITS/3 ML VIAL SC PRN (12:08)
[2023-06-02 12:44] VITALS: BP 153/66; TEMP 97.8
== END 2023-06-02 14:37 | disposition home or self-care (01) | DRG 638 ==
LOC: CSHERS 19:32 → CSHIMCU 05-29 00:46 → CSHTELE 05-30 13:09
PROVIDERS: ADMIT Family Medicine; ATTEND Internal Medicine
DX: E11.10 Type 2 diabetes mellitus with ketoacidosis without coma (principal); K86.2 Cyst of pancreas; K21.9 Gastro-esophageal reflux disease without esophagitis; I10 Essential (primary) hypertension; E78.5 Hyperlipidemia, unspecified; E11.40 Type 2 diabetes mellitus with diabetic neuropathy, unspecified; E86.9 Volume depletion, unspecified; E11.43 Type 2 diabetes mellitus with diabetic autonomic (poly)neuropathy; E83.42 Hypomagnesemia; I25.10 Atherosclerotic heart disease of native coronary artery without angina pectoris; K86.89 Other specified diseases of pancreas; D3A.8 Other benign neuroendocrine tumors; M32.9 Systemic lupus erythematosus, unspecified; K59.00 Constipation, unspecified; Z95.828 Presence of other vascular implants and grafts; Z79.4 Long term (current) use of insulin; Z79.899 Other long term (current) drug therapy; Z88.8 Allergy status to other drugs, medicaments and biological substances; Z88.5 Allergy status to narcotic agent; Z79.82 Long term (current) use of aspirin; Z90.49 Acquired absence of other specified parts of digestive tract; Z90.710 Acquired absence of both cervix and uterus; Z98.41 Cataract extraction status, right eye; Z98.42 Cataract extraction status, left eye; Z82.49 Family history of ischemic heart disease and other diseases of the circulatory system; K31.84 Gastroparesis; E87.6 Hypokalemia
CPT/HCPCS: 36415; 36416; 71045; 74177; 80048; 80053; 80202; 81001; 82010; 83605; 83690; 83735; 84100; 84484; 85025; 85610; 85730; 87040; 93005; 94760; 94762; 96361; 96365; 96375; 96376; C9113; J0696; J1650; J1815; J1885; J2405; J2543; J3370; J3475; J3480; J3490; J7030; J7042; J7050; Q0162; Q0167; Q9967

== ENCOUNTER 2024-01-12 09:49 | Observation (INO) | payer BC, MEDICARE ==
[2024-01-12] MEDS ORDERED: Nitroglycerin 2% Ointment 1 INCH/1 GM Packet ONE (10:26)
[2024-01-12 10:32] LABS: #Basophils 0.08 10x3/uL (0.0-0.2); #Eosinphils 0.23 10x3/uL (0.0-0.5); #Monocytes 0.51 10x3/uL (0.0-1.1); %Basophils 1.5 % (0.0-2.0); %Eosinophils 4.3 % (0.0-6.0); %Monocytes 9.6 % (0.0-10.0); %Neutrophils 52.4 % (40.0-75.0); Hematocrit 32.9 % (34.9-44.5); Mean Corpuscular HGB CONC 33.4 g/dL (32.0-36.0); Mean Corpuscular Hemoglobin 25.9 pg (27.0-33.0); Mean Corpuscular Volume 77.4 fl (81.6-98.3); Platelet Count 288 10x3/uL (150-450); RBC Distribution Width 19.7 % (11.5-14.5); Red Blood Cell (RBC) Count 4.25 10x6/uL (3.90-5.03); White Blood Cell (WBC) Count 5.3 10x3/uL (3.5-10.5)
[2024-01-12 10:35] LABS: ALT (SGPT) 22 U/L (8-55); AST (SGOT) 23 U/L (5-34); Albumin 3.7 g/dL (3.4-4.8); Alkaline Phosphatase 112 U/L (40-110); Anion Gap 13 mmol/L (10-20); BUN (Urea Nitrogen) 19 mg/dL (9.8-20.1); Bilirubin, Total 0.4 mg/dL (0.2-1.2); Calc. Creatinine Clearance 0 mL/min (70-130); Calcium 9.4 mg/dL (7.8-10.44); Carbon Dioxide 23 mmol/L (23-31); Chloride 109 mmol/L (98-107); Estimated GFR 77; Globulin 3.7 g/dL (2.4-3.5); Potassium 4.3 mmol/L (3.5-5.1); Protein, Total 7.4 g/dL (5.8-8.1); Sodium 141 mmol/L (136-145)
[2024-01-12 10:49] LABS: Critical Call Chemistry NUR.DG3@1045; Glucose 48 mg/dL (80-115)
[2024-01-12 11:12] LABS: Troponin I Less than 0.010 ng/mL (< 0.028)
[2024-01-12] MEDS ORDERED: Ondansetron PF 4 MG/2 ML Vial IVP PRN (12:09)
[2024-01-12] MEDS ORDERED: Dextrose 50% Abboject 50 ML SYRINGE SLOW IVP PRN (12:12)
[2024-01-12] MEDS ORDERED: Glucagon 1 MG/ML KIT IM PRN (12:12)
[2024-01-12 12:59] LABS: Troponin I 0.014 ng/mL (< 0.028)
[2024-01-12] MEDS: Dextrose 5 % And 0.9 % NaCl 1,000 ML IV SCH (13:00)
[2024-01-12] MEDS: Dextrose 5% in Water 1,000 ML IV PRN (13:00)
[2024-01-12 14:48] LABS: Troponin I Less than 0.010 ng/mL (< 0.028)
[2024-01-12] MEDS ORDERED: Communication Order-Pharmacy FS SCH (15:30)
[2024-01-12] MEDS: Pantoprazole DR 40 MG TAB PO SCH (16:52)
[2024-01-12] MEDS: Carvedilol 3.125 MG TAB PO SCH (16:52)
[2024-01-12 20:02] VITALS: BMI 29.0
[2024-01-12] MEDS: Hydroxychloroquine Sulfate 200 MG TAB PO SCH (21:30)
[2024-01-12] MEDS: TICAGRELOR 90 MG TABLET PO SCH (22:00)
[2024-01-12] MEDS: Ranolazine ER 500 MG TAB PO SCH (22:00)
[2024-01-12] MEDS: HumaLOG 300 UNITS/3 ML VIAL SC PRN (22:29)
[2024-01-13 03:57] LABS: #Basophils 0.08 10x3/uL (0.0-0.2); #Eosinphils 0.32 10x3/uL (0.0-0.5); #Monocytes 0.98 10x3/uL (0.0-1.1); #Neutrophils 3.17 10x3/uL (1.5-8.4); %Basophils 1.1 % (0.0-2.0); %Eosinophils 4.5 % (0.0-6.0); %Monocytes 13.7 % (0.0-10.0); %Neutrophils 44.4 % (40.0-75.0); Hemoglobin 10.2 g/dL (12.0-15.5); Mean Corpuscular Hemoglobin 26.1 pg (27.0-33.0); Mean Corpuscular Volume 76.7 fl (81.6-98.3); Mean Platelet Volume 10.3 fl (7.4-10.4); Platelet Count 366 10x3/uL (150-450); RBC Distribution Width 19.2 % (11.5-14.5); Red Blood Cell (RBC) Count 3.91 10x6/uL (3.90-5.03); White Blood Cell (WBC) Count 7.1 10x3/uL (3.5-10.5)
[2024-01-13 04:00] LABS: PTT 26.7 sec (22.0-33.0); Prothrombin Time 11.3 sec (9.5-12.1)
[2024-01-13 04:06] LABS: ALT (SGPT) 22 U/L (8-55); AST (SGOT) 18 U/L (5-34); Albumin 3.2 g/dL (3.4-4.8); Alkaline Phosphatase 100 U/L (40-110); Anion Gap 14 mmol/L (10-20); BUN (Urea Nitrogen) 16 mg/dL (9.8-20.1); Bilirubin, Total 0.3 mg/dL (0.2-1.2); Calc. Creatinine Clearance 72 mL/min (70-130); Calcium 9.3 mg/dL (7.8-10.44); Carbon Dioxide 22 mmol/L (23-31); Cardiac Risk 1.9 (Less than 4.5); Chloride 106 mmol/L (98-107); Cholesterol 162 mg/dl (< 200 Desired); Estimated GFR 76; Globulin 3.4 g/dL (2.4-3.5); Glucose 226 mg/dL (80-115); HDL Cholesterol 85 mg/dL (>60 Neg Risk); LDL Cholesterol, Calculated 53 mg/dL; Potassium 4.4 mmol/L (3.5-5.1); Protein, Total 6.6 g/dL (5.8-8.1); Sodium 138 mmol/L (136-145); Triglycerides 121 mg/dL (Less than 150)
[2024-01-13] MEDS ORDERED: Heparin 10,000 UNITS/ 10 ML VIAL ONE (06:31)
[2024-01-13] MEDS ORDERED: Adenosine 6 mg (2 mL) VIAL ONE (06:38)
[2024-01-13] MEDS ORDERED: Nitroglycerin 50 MG/250 ML BOT 250 ML ONE (06:38)
[2024-01-13] MEDS ORDERED: Verapamil 5 MG/2 ML VIAL ONE (06:38)
[2024-01-13] MEDS ORDERED: Lidocaine 1% (PF) 30 ML VIAL ONE (06:41)
[2024-01-13] MEDS ORDERED: fentaNYL 50 mcg/mL 1 mL Vial ONE (07:12)
[2024-01-13] MEDS ORDERED: Midazolam HCl 2 mg/2 ml Vial ONE (07:12)
[2024-01-13] MEDS ORDERED: Sodium Chloride 0.9% 200 ML IV PRN (08:39)
[2024-01-13] MEDS ORDERED: Nitroglycerin 0.4 MG TAB (25 Tab Bottle) SL PRN (08:39)
[2024-01-13] MEDS ORDERED: Escitalopram Oxalate 20 mg Tablet PO SCH (09:00)
[2024-01-13] MEDS ORDERED: Carvedilol 3.125 MG TAB PO SCH (09:00)
[2024-01-13] MEDS ORDERED: Iopamidol 300 61% 100 ML VIAL FS ONE (09:42)
[2024-01-13] MEDS: Aspirin 81 mg Enteric Coated Tablet PO SCH (10:07)
[2024-01-13] MEDS: Isosorbide Mononitrate 30 MG ER.TAB PO SCH (10:08)
[2024-01-13] MEDS: Atorvastatin Calcium 40 MG TAB PO SCH (10:09)
[2024-01-13] MEDS: Escitalopram Oxalate 20 mg Tablet PO SCH (10:09)
[2024-01-13 13:28] LABS: Hemoglobin A1c 7.2 % (4.0-6.0)
[2024-01-13 16:08] VITALS: BP 158/71; TEMP 98.4
== END 2024-01-13 16:37 | disposition home or self-care (01) ==
LOC: CSHERS 09:49 → CSHTELE 13:19
PROVIDERS: ADMIT Family Medicine; ATTEND Family Medicine
PROC: 4A023N7 Measurement of Cardiac Sampling and Pressure, Left Heart, Percutaneous Approach (ICD-10-PCS; principal; 2024-01-13)
PROC: B204YZZ Plain Radiography of Right Heart using Other Contrast (ICD-10-PCS; 2024-01-13)
DX: I25.110 Atherosclerotic heart disease of native coronary artery with unstable angina pectoris (principal); R07.89 Other chest pain; I10 Essential (primary) hypertension; E78.5 Hyperlipidemia, unspecified; K21.9 Gastro-esophageal reflux disease without esophagitis; D50.9 Iron deficiency anemia, unspecified; E11.43 Type 2 diabetes mellitus with diabetic autonomic (poly)neuropathy; K31.84 Gastroparesis; L93.0 Discoid lupus erythematosus; F41.9 Anxiety disorder, unspecified; F32.A Depression, unspecified; C7A.8 Other malignant neuroendocrine tumors; Z90.49 Acquired absence of other specified parts of digestive tract; Z95.5 Presence of coronary angioplasty implant and graft; Z98.41 Cataract extraction status, right eye; Z98.42 Cataract extraction status, left eye; Z79.4 Long term (current) use of insulin; Z79.899 Other long term (current) drug therapy; Z88.5 Allergy status to narcotic agent; Z88.8 Allergy status to other drugs, medicaments and biological substances; Z79.82 Long term (current) use of aspirin; Z90.410 Acquired total absence of pancreas
CPT/HCPCS: 36415; 36416; 71045; 80053; 80061; 83036; 83880; 84484; 85025; 85610; 85730; 93005; 93458; 99152; C1769; C1887; C1894; G0378; J0153; J1644; J2001; J2250; J3010; J7042; J7070; Q9967

== ENCOUNTER 2024-06-25 17:39 | Emergency (ER) | payer MEDICARE, OTHER ==
[2024-06-25] MEDS ORDERED: Morphine 4 MG/ML VIAL ONE (18:40)
[2024-06-25] MEDS ORDERED: Ondansetron PF 4 MG/2 ML Vial ONE (18:40)
[2024-06-25 18:51] LABS: #Basophils 0.06 10x3/uL (0.0-0.2); #Eosinophils 0.15 10x3/uL (0.0-0.5); #Monocytes 0.61 10x3/uL (0.0-1.1); #Neutrophils 3.92 10x3/uL (1.5-8.4); %Basophils 0.8 % (0.0-2.0); %Lymphocytes 37.6 % (18.0-47.0); %Neutrophils 51.2 % (40.0-75.0); Hematocrit 37.4 % (34.9-44.5); Hemoglobin 12.2 g/dL (12.0-15.5); Mean Corpuscular HGB CONC 32.6 g/dL (32.0-36.0); Mean Corpuscular Hemoglobin 25.7 pg (27.0-33.0); Mean Corpuscular Volume 78.9 fL (81.6-98.3); Mean Platelet Volume 10.9 fL (7.4-10.4); Platelet Count 265 10x3/uL (150-450); RBC Distribution Width 14.2 % (11.5-14.5); Red Blood Cell (RBC) Count 4.74 10x6/uL (3.90-5.03); White Blood Cell (WBC) Count 7.6 10x3/uL (3.5-10.5)
[2024-06-25 19:06] LABS: ALT (SGPT) 23 U/L (8-55); AST (SGOT) 17 U/L (5-34); Albumin 3.7 g/dL (3.4-4.8); Alkaline Phosphatase 144 U/L (40-110); Anion Gap 20 mmol/L (10-20); BUN (Urea Nitrogen) 24 mg/dL (9.8-20.1); Bilirubin, Total 0.3 mg/dL (0.2-1.2); Calc. Creatinine Clearance 0 mL/min (70-130); Calcium 9.5 mg/dL (7.8-10.44); Carbon Dioxide 18 mmol/L (23-31); Chloride 96 mmol/L (98-107); Estimated GFR 55; Globulin 3.5 g/dL (2.4-3.5); Lipase 43 U/L (8-78); Potassium 4.4 mmol/L (3.5-5.1); Protein, Total 7.2 g/dL (5.8-8.1); Sodium 130 mmol/L (136-145)
[2024-06-25 19:18] LABS: Bilirubin Neg (Negative); Blood, Urine Negative (Negative); Clarity Clear (Clear); Glucose, Urine (Dipstick) >=1000 mg/dL (Negative); Ketone, Urine 5 mg/dL (Negative); Leukocyte 100 (Negative); Nitrite Negative (Negative); Protein, Urine (Dipstick) Negative (Neg-Trace); Urobilinogen Normal mg/dL (Less than 2)
[2024-06-25 19:27] LABS: Bacteria/HPF Rare-Few HPF (None Seen); CAUTI Indications for Culture Pelvic or flank pain; RBC/HPF None Seen HPF (0-3); Squamous Epithelial 0-3 HPF (0-3); WBC/HPF 0-3 HPF (0-3)
[2024-06-25 19:28] LABS: Urine Culture Reflex No No
[2024-06-25 19:31] LABS: Glucose 528 mg/dL (80-115)
== END 2024-06-25 20:44 | disposition home or self-care (01) ==
LOC: CSHERS 17:39
DX: K59.00 Constipation, unspecified (principal); E11.9 Type 2 diabetes mellitus without complications; E78.5 Hyperlipidemia, unspecified; I10 Essential (primary) hypertension
CPT/HCPCS: 74177; 80053; 81001; 82962; 83690; 85025; J2272; J2405; Q9967; 36416; 96374; 96375

== ENCOUNTER 2024-08-15 09:13 | Outpatient (CLI) | payer MEDICARE ==
[2024-08-15 10:02] LABS: #Basophils 0.07 10x3/uL (0.0-0.2); #Eosinophils 0.19 10x3/uL (0.0-0.5); #Monocytes 0.67 10x3/uL (0.0-1.1); #Neutrophils 3.07 10x3/uL (1.5-8.4); %Eosinophils 2.8 % (0.0-6.0); %Lymphocytes 40.3 % (18.0-47.0); %Neutrophils 45.6 % (40.0-75.0); Hematocrit 41.1 % (34.9-44.5); Hemoglobin 13.2 g/dL (12.0-15.5); Mean Corpuscular HGB CONC 32.1 g/dL (32.0-36.0); Mean Corpuscular Hemoglobin 25.2 pg (27.0-33.0); Mean Corpuscular Volume 78.4 fL (81.6-98.3); Mean Platelet Volume 10.9 fL (7.4-10.4); Platelet Count 321 10x3/uL (150-450); RBC Distribution Width 15.4 % (11.5-14.5); Red Blood Cell (RBC) Count 5.24 10x6/uL (3.90-5.03); White Blood Cell (WBC) Count 6.7 10x3/uL (3.5-10.5)
[2024-08-15 10:20] LABS: ALT (SGPT) 25 U/L (8-55); AST (SGOT) 20 U/L (5-34); Albumin 3.8 g/dL (3.4-4.8); Alkaline Phosphatase 111 U/L (40-110); Anion Gap 16 mmol/L (10-20); BUN (Urea Nitrogen) 18 mg/dL (9.8-20.1); Bilirubin, Direct 0.2 mg/dL (0.1-0.3); Bilirubin, Total 0.4 mg/dL (0.2-1.2); Calc. Creatinine Clearance 0 mL/min (70-130); Carbon Dioxide 23 mmol/L (23-31); Chloride 104 mmol/L (98-107); Estimated GFR 79; Glucose 195 mg/dL (80-115); Potassium 4.6 mmol/L (3.5-5.1); Protein, Total 7.2 g/dL (5.8-8.1); Sodium 138 mmol/L (136-145)
== END 2024-08-15 09:14 | disposition home or self-care (01) ==
LOC: CSHLAB 09:13
PROVIDERS: ATTEND Surgery
DX: Z01.818 Encounter for other preprocedural examination (principal); R10.31 Right lower quadrant pain
CPT/HCPCS: 80048; 80076; 85025; 93005; 93010

== ENCOUNTER 2024-08-19 09:20 | Day surgery (SDC) | payer MEDICARE ==
[2024-08-15 09:42] VITALS: BMI 25.7
[2024-08-19] MEDS ORDERED: Lidocaine 1% PF 5 ML VIAL ONE (10:41)
[2024-08-19] MEDS ORDERED: PROPOFOL 20 ML ONE (10:41)
[2024-08-19] MEDS ORDERED: Rocuronium Bromide 10 MG/ML (10ML VIAL) ONE (10:42)
[2024-08-19] MEDS ORDERED: CEFAZOLIN 2 GM VIAL ONE (11:09)
[2024-08-19] MEDS ORDERED: Bupivacaine/Epinephrine 0.25% 30 ML VIAL ONE (11:09)
[2024-08-19] MEDS ORDERED: fentaNYL 50 mcg/mL 1 mL Vial ONE ×3 (11:10→12:50)
[2024-08-19] MEDS ORDERED: Ondansetron PF 4 MG/2 ML Vial ONE (11:29)
[2024-08-19] MEDS ORDERED: Dexamethasone 4 mg/ml Vial ONE (11:29)
[2024-08-19] MEDS ORDERED: SUGAMMADEX SODIUM 200 MG/2 ML VIAL ONE (11:48)
[2024-08-19] MEDS ORDERED: Mupirocin 2% Ointment 22 GM Tube ONE (11:57)
[2024-08-19] MEDS ORDERED: HYDROcodone/Acetaminophen 5/325 mg Tablet ONE (13:14)
== END 2024-08-19 13:54 | disposition home or self-care (01) ==
LOC: CSHSDC 09:20
PROVIDERS: ATTEND Surgery
PROC: 0WJJ4ZZ Inspection of Pelvic Cavity, Percutaneous Endoscopic Approach (ICD-10-PCS; principal; 2024-08-19)
DX: R10.31 Right lower quadrant pain (principal); E11.9 Type 2 diabetes mellitus without complications; I25.10 Atherosclerotic heart disease of native coronary artery without angina pectoris; I10 Essential (primary) hypertension; E78.5 Hyperlipidemia, unspecified; K21.9 Gastro-esophageal reflux disease without esophagitis; M32.9 Systemic lupus erythematosus, unspecified; Z95.5 Presence of coronary angioplasty implant and graft; Z79.899 Other long term (current) drug therapy; Z79.4 Long term (current) use of insulin; Z98.890 Other specified postprocedural states
CPT/HCPCS: 49320; J1100; J2405; J2704; J3010; S2900

== ENCOUNTER 2024-09-04 02:14 | Observation (INO) | payer MEDICARE ==
[2024-09-04 03:42] VITALS: BMI 29.2
[2024-09-04] MEDS ORDERED: Dextrose 5% in Water 1,000 ML IV PRN (03:51)
[2024-09-04] MEDS ORDERED: Dextrose 50% Abboject 50 ML SYRINGE SLOW IVP PRN (03:51)
[2024-09-04] MEDS ORDERED: Calcium Carbonate 500 MG ChewTAB PO PRN (03:51)
[2024-09-04] MEDS ORDERED: Ondansetron PF 4 MG/2 ML Vial IVP PRN (03:51)
[2024-09-04] MEDS ORDERED: Guaifenesin DM 100-10/5 ML UDCUP PO PRN (03:51)
[2024-09-04] MEDS ORDERED: Insulin Lispro 100 UNIT/ML 10 ML VIAL SC PRN (03:51)
[2024-09-04] MEDS ORDERED: Acetaminophen 325 MG TAB PO PRN (03:51)
[2024-09-04] MEDS ORDERED: Glucagon 1 MG/ML KIT IM PRN (03:51)
[2024-09-04] MEDS ORDERED: Senokot S 8.6-50 MG TAB PO PRN (03:51)
[2024-09-04] MEDS ORDERED: Lorazepam 0.5 MG TAB PO PRN (03:56)
[2024-09-04 04:35] LABS: #Basophils 0.07 10x3/uL (0.0-0.2); #Monocytes 1.28 10x3/uL (0.0-1.1); #Neutrophils 3.51 10x3/uL (1.5-8.4); %Basophils 0.7 % (0.0-2.0); %Eosinophils 5.3 % (0.0-6.0); %Lymphocytes 42.2 % (18.0-47.0); %Monocytes 13.7 % (0.0-10.0); %Neutrophils 37.6 % (40.0-75.0); Hemoglobin 9.8 g/dL (12.0-15.5); Mean Corpuscular HGB CONC 31.6 g/dL (32.0-36.0); Mean Corpuscular Hemoglobin 25.2 pg (27.0-33.0); Mean Corpuscular Volume 79.7 fL (81.6-98.3); Mean Platelet Volume 10.8 fL (7.4-10.4); Platelet Count 346 10x3/uL (150-450); RBC Distribution Width 16.3 % (11.5-14.5); Red Blood Cell (RBC) Count 3.89 10x6/uL (3.90-5.03); White Blood Cell (WBC) Count 9.36 10x3/uL (3.5-10.5)
[2024-09-04 04:57] LABS: Troponin I Less than 0.010 ng/mL (< 0.028)
[2024-09-04] MEDS: Lidocaine 2% Viscous Solution 10 ML, Aluminum & Magnesium Hydroxide 30 ML SSW SCH (05:27)
[2024-09-04] MEDS: Carvedilol 6.25 MG TAB PO SCH (08:44)
[2024-09-04] MEDS: Aspirin 81 mg Enteric Coated Tablet PO SCH (08:44)
[2024-09-04] MEDS: Isosorbide Mononitrate 30 MG ER.TAB PO SCH (08:44)
[2024-09-04] MEDS: Famotidine 20 MG TAB PO SCH (08:44)
[2024-09-04] MEDS ORDERED: FLU (Fluad Triv) TS24-25 (65UP)/MF59C/PF 45 MCG/0.5 ML Syringe IM ONE (09:00)
[2024-09-04 10:14] LABS: Hematocrit 31.2 % (34.9-44.5); Hemoglobin 9.9 g/dL (12.0-15.5)
[2024-09-04 10:33] LABS: Troponin I Less than 0.010 ng/mL (< 0.028)
[2024-09-04] MEDS: Nitroglycerin 0.4 MG TAB (25 Tab Bottle) SL PRN (13:13)
[2024-09-04] MEDS: HYDROcodone/Acetaminophen 5/325 mg Tablet PO PRN (14:03)
[2024-09-04 15:59] VITALS: BP 148/74; TEMP 98.5
[2024-09-04] MEDS ORDERED: Enoxaparin 40 MG (0.4 mL) SYRINGE SC SCH (21:00)
== END 2024-09-04 17:45 | disposition home or self-care (01) ==
LOC: CSHTELE 03:17
PROVIDERS: ADMIT Student in an Organized Health Care Education/Training Program; ATTEND Student in an Organized Health Care Education/Training Program
DX: R07.89 Other chest pain (principal); I10 Essential (primary) hypertension; I25.10 Atherosclerotic heart disease of native coronary artery without angina pectoris; E11.9 Type 2 diabetes mellitus without complications; E16.2 Hypoglycemia, unspecified; E78.5 Hyperlipidemia, unspecified; D64.9 Anemia, unspecified; F41.9 Anxiety disorder, unspecified; F32.A Depression, unspecified; Z95.5 Presence of coronary angioplasty implant and graft; Z98.41 Cataract extraction status, right eye; Z98.42 Cataract extraction status, left eye; Z90.710 Acquired absence of both cervix and uterus; Z90.49 Acquired absence of other specified parts of digestive tract; Z88.8 Allergy status to other drugs, medicaments and biological substances; Z88.5 Allergy status to narcotic agent; Z88.1 Allergy status to other antibiotic agents; Z79.4 Long term (current) use of insulin; Z79.82 Long term (current) use of aspirin; Z79.899 Other long term (current) drug therapy
CPT/HCPCS: 82962; 84484; 85014; 85018; 85025; 93005; G0378; 36415; 36416; 93010

== ENCOUNTER 2025-07-24 20:41 | Emergency (ER) | payer MEDICARE | END 2025-07-24 22:38 | disposition left against medical advice (07) | LOC: CSHERS 20:41 | DX: Z53.29 Procedure and treatment not carried out because of patient's decision for other reasons (principal); E11.9 Type 2 diabetes mellitus without complications; I25.10 Atherosclerotic heart disease of native coronary artery without angina pectoris; I10 Essential (primary) hypertension; Z95.5 Presence of coronary angioplasty implant and graft ==